=== PATIENT | female | born 1970 | race Caucasian/White ===

== ENCOUNTER 2016-05-17 09:52 | Outpatient (CLI) | payer OTHER ==
--- NOTE | 2016-05-17 11:28 | Mammography Report ---
BONE DENSITY STUDY: DEFINITIONS: BMD = Bone Mineral Density T-score = BMD related to mean peak bone mass of young adult (mean expressed in Standard Deviation) Z-score = Age matched BMD expressed in SD World Health Organization (WHO) Diagnostic Criteria Normal T-score > -1 SD Osteopenia T-score between -1 and -2.4 SD Osteoporosis T-score -2.5 SD or below FINDINGS: The weighted average BMD of lumbar spine L1-L4 is 0.837 with a T-score of -1.9. The weighted average BMD of hip is 0.834 with a T-score of -0.9. IMPRESSION: The patient's T-score is diagnostic for osteopenia and average relative risk for fracture. NOTE: BMD is not the only risk factor for fracture; also consider factors such as the patient's age, risk of falling, previous osteoporotic fracture, family history of osteoporotic fractures, current smoker, and low body weight. Prado's triangle is a region of interest in femur, predominantly of trabecular bone. It is not a true anatomic site, and [facility] does not recommend its use clinically.
== END 2016-05-17 09:53 | disposition home or self-care (01) ==
LOC: MAMMO 09:52
PROVIDERS: ATTEND Family Medicine Adult Medicine
DX: M85.80 Other specified disorders of bone density and structure, unspecified site (principal); M47.896 Other spondylosis, lumbar region; M54.9 Dorsalgia, unspecified
CPT/HCPCS: 77080

== ENCOUNTER 2018-01-10 08:06 | Outpatient (CLI) | payer OTHER ==
--- NOTE | 2018-01-10 10:17 | XRay Report ---
BILATERAL HIP RADIOGRAPHS INDICATION: Right hip pain, polyarthritis. COMPARISON: None similar. FINDINGS: An AP pelvic radiograph with frog-leg projections of both hips demonstrate normal femoral head contours, well located within the acetabula. Tiny ossific densities at the acetabula bilaterally may be degenerative. Intact remainder pelvic articulation. Grossly normal imaged lower lumbar spine. Nonobstructive bowel gas pattern. CONCLUSION: No acute radiographic abnormality, as described. Thank you for the opportunity to participate in this patient's care.
--- NOTE | 2018-01-10 13:07 | Ultrasound Report ---
TRANSABDOMINAL AND TRANSVAGINAL PELVIC ULTRASOUND: 01/10/18 08:06:00 CLINICAL: Pelvic pain. FINDINGS: Transabdominal and transvaginal pelvic ultrasound demonstrated a mildly enlarged fibroid uterus measuring 12.4 x 5.8 x 8.3 cm. The largest fibroid is located posterior intramural uterine body and measures 3.2 x 2.3 x 2.9 cm. A posterior fundal intramural fibroid measures 1.5 x 1.7 x 1.2 cm and an anterior body intramural fibroid measures 1.6 x 1.3 x 1.3 cm.The endometrium is normal and measures 10 mm AP thickness. Normal ovaries with bilateral follicular cysts. The right ovary measures 4.5 x 3.2 x 2.7 cm. A dominant follicle of the right ovary measures 2.5 x 2.2 x 2.3 cm. The left ovary measures 1.5 x 2.0 x 1.9 cm. A dominant follicle of the left ovary measures 1.4 x 1.3 x 1.1 cm. No adnexal mass. No free fluid. Normal urinary bladder. IMPRESSION: 1. Uterine leiomyomata with mild uterine enlargement and a dominant 3.2 cm posterior body intramural fibroid. 2. Normal endometrium. 3. Normal ovaries.
--- NOTE | 2018-01-10 13:13 | Ultrasound Report ---
ABDOMINAL ULTRASOUND: 01/10/18 08:06:00 CLINICAL: Abdominopelvic pain. FINDINGS: High-resolution ultrasound demonstrates a borderline enlarged liver with marked diffuse increased echogenicity. No liver mass. Poor imaging of the hepatic vasculature. Normal inferior vena cava. A partially contracted gallbladder with no stones. The gallbladder wall measures 1.3 mm. Normal bile ducts. The common bile duct measures 2.4 mm diameter. The pancreas is not imaged due to bowel gas. Normal abdominal aorta measuring 1.3 cm diameter. A normal spleen measures 8.1 x 3.2 x 3.6 cm. Normal renal echogenicity and renal contours. Mild bilateral renal pelvic calyceal dilatation but no ureteral dilatation. The right kidney measures 10.4 x 4.4 x 4.5 cm. The left kidney measures 9.7 x 4.0 x 4.6 cm. No renal mass or calculus. No ascites or mass. IMPRESSION: 1. Marked increased echogenicity of the liver and borderline hepatomegaly, most likely due to hepatic steatosis. 2. Normal biliary tract with no cholelithiasis. However, the pancreas was not imaged. 3. Mild bilateral renal pelvocaliceal dilatation without an identified etiology. I suspect that this is probably related to an enlarged fibroid uterus identified by pelvic ultrasound.
== END 2018-01-10 08:07 | disposition home or self-care (01) ==
LOC: SPVWC 08:06
PROVIDERS: ATTEND Family Medicine
DX: D25.1 Intramural leiomyoma of uterus (principal); N83.02 Follicular cyst of left ovary; N83.01 Follicular cyst of right ovary; N28.89 Other specified disorders of kidney and ureter; M25.551 Pain in right hip; G89.29 Other chronic pain
CPT/HCPCS: 73521; 76700; 76830; 76856